=== PATIENT | female | born 1980 | race Two or more races ===

== ENCOUNTER 2018-02-19 17:40 | Observation (INO) | payer MEDICAID | END 2018-02-19 17:52 | disposition left against medical advice (07) | LOC: MLD 17:40 | PROVIDERS: ADMIT Obstetrics & Gynecology; ATTEND Obstetrics & Gynecology | DX: O26.899 Other specified pregnancy related conditions, unspecified trimester (principal); R10.9 Unspecified abdominal pain; Z3A.00 Weeks of gestation of pregnancy not specified | CPT/HCPCS: G0378 ==